=== PATIENT | female | born 2000 | race American Indian/Alaskan Native ===

== ENCOUNTER 2019-05-03 03:31 | Emergency (ER) | payer MEDICAID ==
[2019-05-03 03:46] VITALS: BP 134/68
[2019-05-03 04:29] LABS: Bacteria,Urine 2+ /HPF (Negative); Bilirubin,Urine NEG (Negative); Blood,Urine NEG (Negative); Color,Urine Yellow (Yellow); Mucus,Urine 3+ /HPF
[2019-05-03 04:46] LABS: Basophils # (Auto) 0.1 K/mm3 (0.0-0.1); Basophils % (Auto) 0.9 % (0.0-1.8); Eosinophils # (Auto) 0.2 K/mm3 (0.0-0.4); Eosinophils % (Auto) 2.6 % (0.0-4.3); Hematocrit 34.7 % (30.3-42.9); Hemoglobin 10.8 gm/dl (10.1-14.3); Lymphocytes # (Auto) 3.2 K/mm3 (1.2-5.4); Lymphocytes % (Auto) 46.4 % (13.4-35.0); Mean Corpuscular HGB Conc 31 % (30-34); Monocytes # (Auto) 0.5 K/mm3 (0.0-0.8); Monocytes % (Auto) 6.9 % (0.0-7.3); Platelet Count 326 K/mm3 (140-440); Red Blood Count 5.74 M/mm3 (3.65-5.03); Red Cell Distribution Width 19.4 % (13.2-15.2)
[2019-05-03 04:50] LABS: Mean Corpuscular Volume 61 fl (79-97)
[2019-05-03 04:57] LABS: Alanine Aminotransferase 27 units/L (7-56); BUN/Creatinine Ratio 11; Blood Urea Nitrogen 8 mg/dL (7-17); Calcium 9.3 mg/dL (8.4-10.2); Hemolysis Index 13
--- NOTE | 2019-05-03 06:52 | Emergency Department Report ---
HPI - General Chief Complaint: Abdominal Pain Time Seen by Provider: 05/03/19 06:35 - HPI HPI: 19-year-old -[place] female presents to the emergency department from home with a complaint of waking up in the middle of the night with upper abdominal pain. She denies any fever, nausea, vomiting. Patient gave 3 weeks ago in [facility]. She has a past medical history of sickle cell trait. The patient is also currently on antibiotics for a urinary tract infection. Otherwise she did not take anything for symptoms prior to presentation today. She says that the symptoms have improved and she just has a mild soreness at this time. No sick contacts at home. ED Past Medical Hx - Past Medical History Previous Medical History?: Yes Hx Sickle Cell Disease: Yes (SICKLE CELL TRAIT) Hx Seizures: No - Surgical History Past Surgical History?: Yes Additional Surgical History: Breast reduction - Social History Smoking Status: Never Smoker Substance Use Type: None - Medications Home Medications: Home Medications Medication Instructions Recorded Confirmed Last Taken Type Omeprazole 20 mg PO QDAY #14 capsule. 05/03/19 Unknown Rx ED Review of Systems ROS: Stated complaint: UPPER ABD PAIN Other details as noted in HPI Comment: All other systems reviewed and negative Constitutional: denies: chills, fever Respiratory: denies: cough, shortness of breath Cardiovascular: denies: chest pain, palpitations Gastrointestinal: abdominal pain. denies: nausea, vomiting Genitourinary: denies: dysuria, discharge Musculoskeletal: denies: back pain, arthralgia Neurological: denies: headache, weakness Physical Exam - Physical Exam Vital Signs: Vital Signs 05/03/19 03:37 Temperature 98.7 F Pulse Rate 99 H Respiratory 20 Rate Blood Pressure 134/68 O2 Sat by Pulse 100 Oximetry Physical Exam: GENERAL: The patient is well-developed well-nourished. HENT: Normocephalic. Atraumatic. Patient has moist mucous membranes. EYES: Extraocular motions are intact. NECK: Supple. Trachea is midline. CHEST/LUNGS: Clear to auscultation. There is no respiratory distress noted. HEART/CARDIOVASCULAR: Regular. There is no tachycardia. ABDOMEN: Abdomen is soft. Mild upper abdominal tenderness to palpation. No guarding. No rebound tenderness. Patient has normal bowel sounds. There is no abdominal distention. SKIN: Skin is warm and dry. NEURO: The patient is awake, alert, and oriented. The patient is cooperative. Normal speech. MUSCULOSKELETAL: There is no tenderness or deformity. There is no limitation range of motion. There is no evidence of acute injury. ED Course Vital Signs 05/03/19 03:37 Temperature 98.7 F Pulse Rate 99 H Respiratory 20 Rate Blood Pressure 134/68 O2 Sat by Pulse 100 Oximetry ED Medical Decision Making - Lab Data Result diagrams: 05/03/19 04:19 05/03/19 04:19 - Medical Decision Making This patient presents to the emergency department with a complaint of some upper abdominal pain that woke her from sleep. Her labs have been unremarkable including CBC and metabolic panel but the patient does have a urinary tract infection. However the patient already knew that she had a UTI and is currently on antibiotics for it. She denies any fever, dysuria, discharge, back pain, nausea, vomiting. On examination the abdomen is soft, nondistended and nontoxic in appearance. She has very mild "soreness" to palpation but no guarding or rebound tenderness. Her vital signs have been stable throughout her ED course. I discussed getting an ultrasound and abdominal x-ray just to further evaluate the patient's symptoms looking for signs of cholelithiasis, pancreatitis, among other differential diagnosis. However, the patient is very concerned about the time it would take to get any further imaging or testing done at this time and says that her pain is very mild, currently 1-2 out of 10. For these reasons, the patient will be discharged home at this time to follow-up with primary care, but will return to the emergency department immediately with any worsening of her symptoms or any acute distress. The patient understands and agrees to the plan. - Differential Diagnosis Pancreatitis, cholelithiasis, cholecystitis, gastritis, GERD Critical Care Time: No Critical care attestation.: If time is entered above; I have spent that time in minutes in the direct care of this critically ill patient, excluding procedure time. ED Disposition Clinical Impression: Upper abdominal pain UTI (urinary tract infection) Qualifiers: Urinary tract infection type: acute cystitis Hematuria presence: without hematuria Qualified Code(s): N30.00 - Acute cystitis without hematuria Disposition: TO HOME OR SELFCARE Is pt being admited?: No Condition: Stable Instructions: Urinary Tract Infection in Women (ED), Abdominal Pain (ED) Additional Instructions: Continue with your antibiotics for the urinary tract infection. Please follow- up with a primary care physician in the next few days. Return to the emergency department with any worsening of your symptoms or any acute distress. Prescriptions: Omeprazole 20 mg PO QDAY #14 capsule. Referrals: PRIMARY CARE, [Primary Care Provider] - 2-3 Days Time of Disposition: 06:54
== END 2019-05-03 07:17 | disposition home or self-care (01) ==
LOC: ED 03:31
DX: N39.0 Urinary tract infection, site not specified (principal); D57.3 Sickle-cell trait
CPT/HCPCS: 36415; 80053; 81001; 85025; 99283